=== PATIENT | female | born 1945 | race Caucasian/White ===

== ENCOUNTER 2016-10-26 08:09 | Day surgery (SDC) | payer MEDICARE, OTHER ==
[~2016-10-26] VITALS: Ht 170.2 cm; Wt 69.6 kg
[2016-10-26] VITALS (11 sets, daily range): BP systolic 110–203; BP diastolic 49–75; PULSE 61–74; RESP 12–24; O2SAT 85–100
[~2016-10-26 08:09] MED LIST: 0.9% Sodium Chloride 500 ML IV ONE; ALBU8.5H2 INHALATION; AMLO5TAB2 PO; CALC500T9 PO; CARV3.12 PO; CeFAZolin Inj 2 GM in IV Premix 1 EACH IV ONE; FOLI0.8T2 PO; GLBR5T PO; HYDR25TA4 PO; LEVO50CA2 PO; SERT100T PO
[2016-10-26] MEDS ORDERED: Propofol 10,000 mCg/mL 20 mL Inj ONE (08:10)
[2016-10-26] MEDS ORDERED: Dexamethasone 4 mg/mL Inj ONE (08:10)
[2016-10-26] MEDS ORDERED: fentaNYL-PF 50 mCg/mL 2 mL Inj ONE (08:10)
[2016-10-26] MEDS ORDERED: Rocuronium 10 mg/mL 5 mL Inj ONE (08:10)
[2016-10-26] MEDS ORDERED: Ondansetron 2 mg/mL 2 mL Inj ONE (08:10)
[2016-10-26] MEDS ORDERED: GLIP2.5T2 PO (08:32)
--- NOTE | 2016-10-26 09:18 | PCM.HPANE ---
Patient Data Date of Service: Oct 26, 2016 Surgeon Admitting Provider: Attending Provider:Desmond David MD Primary Care Physician:Biju Peter MD Other Provider: Reason for Visit End Stage Renal Failure Ht/WT & BMI Height (Feet): 5 Height (Inches): 7 Weight (Kilograms): 69.6 Body Mass Index 24.00 Allergies Coded Allergies: Sulfa (Sulfonamide Antibiotics) (Verified Allergy, Unknown, UNKNOWN, ) doxycycline (Verified Allergy, Unknown, UNKNOWN, 12/23/15) morphine (Verified Adverse Reaction, Severe, VIOLENT BEHAVIOR, 12/23/15) Uncoded Allergies: BEE STINGS (Allergy, Unknown, UNKNOWN, 12/23/15) Past Anesthesia History Anesthesia History: Denies:: Anesthesia Reactions, Fam Anesthesia Reaction, Malignant Hyperthermia Diabetes History Hx Diabetes?: Yes Type of Diabetes: Type II Glycemic Control: Oral Medication Current Bedside Blood Glucose: 145 MRSA MRSA: No Medications Hypertension Medication: Yes Home Meds Incl Beta Yossi: Yes Date Beta Yossi Taken: Oct 26, 2016 Time Beta Yossi Taken: 629 Reported Medications Glipizide ER 2.5 Mg Tab.er.242.5 Mg PO BID #180 10/26/16 Calcium Carbonate (Tums)500 Mg Tab.chew1,000 Mg PO TIDWM 30 Days 10/23/16 Folic Acid/Vitamin B Comp W-C (Nephro-Kristie Tablet)0.8 Mg Tablet0.8 Mg PO DAILY 10/23/16 Amlodipine 5 Mg Tablet5 Mg PO DAILY Ref 0 10/23/16 Carvedilol (Coreg)3.125 Mg Tablet3.125 Mg PO DAILY Ref 0 10/23/16 Sertraline HCl (Zoloft)100 Mg Wwzhdf17 Mg PO DAILY 30 Days Ref 0 10/23/16 Levothyroxine (Tirosint)50 Mcg Hmmkxuo94 Mcg PO DAILY 10/23/16 Albuterol HFA (Proair HFA)8.5 Gm Hfa.aer.ad2 Puffs INHALATION Q4H PRN For Shortness of Breath #1 INHALER 10/23/16 Hydrochlorothiazide 25 Mg Szygol44 Mg PO DAILY 30 Days Ref 0 10/23/16 Discontinued Reported Medications Glyburide 5 Mg Tab10 Mg PO QAM 30 Days Ref 0 10/23/16 Hydrochlorothiazide 25 Mg Xzkdql07 Mg PO DAILY 30 Days Ref 0 12/23/15 Carvedilol 3.125 Mg Tablet3.125 Mg PO BID Ref 0 12/23/15 Amlodipine 5 Mg Tablet5 Mg PO BID Ref 0 12/23/15 Sertraline HCl (Zoloft)50 Mg Knizid12 Mg PO DAILY Ref 0 12/23/15 Levothyroxine (Tirosint)50 Mcg Yxyozgu97 Mcg PO DAILY 12/23/15 Albuterol HFA (Proair HFA)8.5 Gm Hfa.aer.ad2 Puffs INHALATION Q4H #1 INHALER 12/23/15 Insuln Asp Prt/Insulin Aspart (NovoLOG 70/30 U100 Insulin Flexpen)100 Unit/Ml Unit10 Unit SUBQ TIDWM #1 PENINJ Ref 0 12/23/15 Glipizide 10 Mg Blsjwn50 Mg PO DAILY 30 Days 12/23/15 History History of ENT Problems?: Yes HEENT History: Positive for:: Cataracts (bilateral ) Sinus Problem (hx nasal surgery, chronic sinusitis) Denies:: Glaucoma Hearing Problem Hx of Heart Problems?: Yes Cardiovascular History: Positive for:: Hypertension Denies:: AICD Heart Murmur Irregular Heartbeat Pacemaker Peripheral Vascular Hx of Respiratory Problem?: Yes Respiratory History: Positive for:: Asthma (CTA DOS) Use of Inhalers / NEBS Denies:: COPD Dyspnea Oxygen Administration Pneumonia Tuberculosis Use of C-PAP Machine Hx Neurologic Problems?: Yes Neurological History: Denies:: Alzheimer's Disease CVA Headaches Multiple Sclerosis Parkinson's Disease Seizures Hx of GI Problems?: Yes Gastrointestinal History: Positive for:: Gall Bladder Disease (bladimir) Gastroesphageal Reflux (2 tums before every meal ) Hepatitis (HEP A & B HEP C-TREATED) Hx of Problems?: Yes Genitourinary History: Positive for:: HX of Hemodialysis (dialysis, tues, th, [facility] [place], [place]) Denies:: Kidney Stones Urinary Tract Infection Female Hx: Denies:: Currently Problems with Breasts? Skin History: Denies:: History Skin Disorders? Pressure Ulcers Hx Musculoskeletal Problems?: Yes Musculoskeletal History: Positive for:: Musculoskeletal Trauma (recent fx wrist- pins placed 07/2016) Osteoarthritis ("probably" in fingers, not officially dx) Denies:: Back Injury Joint Replacement Myasthenia Gravis Hx of Psycho/Social Problems?: No Hx Any Other Health Problems?: Yes Other History: Positive for:: Thyroid Disease Denies:: Cancer Endocrine Disease Hospitalization History Blood Transfusions: Positive for:: Accept Blood Products? Denies:: Blood Transfusions Hx Diabetes: YesBedside Blood Glucose: 145 Hx Alcohol Use: YesAlcoholic Drinks Per Day: drink dailyHx Substance Use: No Smoking Status: Former Smoker Have You Smoked inLast 12 mo: No Stop/Bang Treated for Sleep Apnea?: No Do You Have a CPAP Machine?: No S-Snoring: Do You Snore Loudly: No T-Tired: feel tired, fatigued: Yes O-Obsered: Observed not breath: No P-Blood Pressure: treated: Yes B- Body Mass Index > 35 kg/m2: No A- Age over 50: Yes N- Neck Large Circumference: No G- Gender Male: No LYNN Total Score: 3 LYNN Risk Assessment: High Risk, =/>3 Yes Risk Assessment Category Category 1A: Patient has history of documented sleep apnea, and HAS NOT received any narcotic, sedative or anesthesia administration during this stay. Category 1B: Patient has history of documented sleep apnea, and HAS received any narcotic , sedative or anesthesia administration during this stay Category 2: Patient has SUSPECTED Obstructive Sleep Apnea, and HAS received any narcotic , sedative or anesthesia administration during this stay. Category 3: Patient has SUSPECTED Obstructive Sleep Apnea and HAS NOT received narcotic, sedative or anesthesia administration during this stay. Category 4: Outpatient in Procedural Areas with known sleep apnea or who screen positive for High Risk via the STOP/BANG questionnaire. Exam Exam Vital Signs Vital Signs Date Time Temp Pulse Resp B/P Pulse Ox O2 Delivery O2 Flow Rate FiO2 10/26/16 08:33 74 14 135/59 95 Room Air General Appearance: Alert, Oriented X3, Cooperative, No Acute Distress HEENT/AIRWAY: MP 3 (retrognathic) Lungs: Clear to Auscultation, Normal Air Movement Heart: Normal S1, Normal S2, Murmur (II/ ZORAIDA from aortic post without radiation.) Meds/Labs/Diagnostics Admission Meds Current Medications Sodium Chloride (Normal Saline) 500 ml @ 10 mls/hr Q24H ONCE IV Last administered on 10/26/16t 08:29; Start 10/26/16 at 05:00; Stop 2/21/17 at 04:59 Bedside Blood Glucose: 145 Labs Test 10/26/16 09:02 Plan Impression Patient chart reviewed, patient interviewed and anesthestic plan with risks, benefits, and alternatives discussed, and informed consent obtained. NPO Status: 1830 10/25/16 ASA Physical Status: ASA3 Severe Disease Anesthetic Plan: GA Bene/Risks/Altern/Consents: Yes HP Complete Prior to Induction: Yes Avila Silver DO Oct 26, 2016 09:18
[2016-10-26] MEDS ORDERED: HepLOK Flush 100 unit/mL 5 mL Inj XX ONE (10:35)
[2016-10-26] MEDS ORDERED: Bupivacaine-MPF 0.5% 30 mL Inj INJ ONE (10:35)
[2016-10-26] MEDS ORDERED: Lactated Ringer's 500 ML IV PRN (10:42)
[2016-10-26] MEDS ORDERED: Lactated Ringer's 1,000 ML IV SCH (10:42)
[2016-10-26] MEDS ORDERED: MetoCLOpramide 5 mg/mL 2 mL Inj IVPUSH PRN (10:45)
[2016-10-26] MEDS ORDERED: EPHEDrine Sulfate 50 mg/mL Inj IVPUSH PRN (10:45)
[2016-10-26] MEDS ORDERED: Labetalol 5 mg/mL 4 mL Inj IV PRN (10:45)
[2016-10-26] MEDS ORDERED: Atropine 0.4 mg/mL Inj IVPUSH PRN (10:45)
[2016-10-26] MEDS ORDERED: Dexamethasone 4 mg/mL Inj IVPUSH PRN (10:45)
[2016-10-26] MEDS ORDERED: Phenylephrine 10,000 mCg/mL Inj IVPUSH PRN (10:45)
[2016-10-26] MEDS ORDERED: fentaNYL-PF 50 mCg/mL 2 mL Inj IVPUSH PRN (10:45)
[2016-10-26] MEDS ORDERED: Ondansetron 2 mg/mL 2 mL Inj IVPUSH PRN (10:45)
[2016-10-26] MEDS ORDERED: HYDROmorphone 1 mg/mL Inj IVPUSH PRN (10:45)
[2016-10-26] MEDS ORDERED: HYDROcodone-APAP 5-325 mg Tablet PO PRN (11:20)
--- NOTE | 2016-10-26 13:31 | PCM.ANEP1 ---
Post Anesthesia Phase 1 PACU Phase 1 Assessment Date of Service: Oct 26, 2016 Vital Signs Vital Signs Date Time Temp Pulse Resp B/P Pulse Ox O2 Delivery O2 Flow Rate FiO2 10/26/16 12:15 36 62 16 111/57 93 Room Air 10/26/16 11:59 36.4 62 14 116/53 94 Room Air 10/26/16 11:55 61 14 114/53 92 Room Air 10/26/16 11:47 61 18 110/49 93 Room Air 10/26/16 11:35 35.9 62 16 117/55 95 Room Air 10/26/16 11:30 65 18 119/57 100 Simple Mask 8 10/26/16 11:25 66 24 124/63 100 Simple Mask 8 10/26/16 11:20 64 20 175/56 92 Simple Mask 8 10/26/16 11:15 66 14 203/75 89 Simple Mask 8 10/26/16 11:12 36.0 74 12 185/75 85 Simple Mask 8 10/26/16 08:33 74 14 135/59 95 Room Air Anesthetic Administered: GA Level of Alertness: Drowsy, not talking ALCANTAR's with Equal Strength: Yes Pain: No Nausea or Vomiting: No Airway Device: Oralpharangeal Airway Oxygen Delivery: Simple Mask (6l mask) Lungs: Clear to Auscultation, Normal Air Movement (Brief period of desaturation 77% and above relieved with jaw thrust, oral airway. Spontaneous exchange relieves desaturation within 3min) Dermatome Level: Full Sensation Avila Silver DO Oct 26, 2016 13:31
--- NOTE | 2016-10-26 13:41 | PCM.ANEP2 ---
Post Anesthesia Evaluation ASA/CMS Post Anesthesia Date of Service: Oct 26, 2016 VS in Patient's Normal Range?: Yes Resp Stable; Airway Patent?: Yes CV Function & Hydration Stable: Yes Mental Status Recovered?: Yes Pain control Satisfactory?: Yes N/V Control Satisfactory?: Yes Avila Silver DO Oct 26, 2016 13:41
--- NOTE | 2016-10-27 01:05 | OP ---
[address] [address] OPERATIVE REPORT PATIENT: CAROLYN CHAN : 1945 MR#: [id number] ADMIT: 10/26/2016 JOB ID: [id number] DATE OF SURGERY: 10/26/2016 PREOPERATIVE DIAGNOSIS(ES): End-stage renal failure. POSTOPERATIVE DIAGNOSIS(ES): 1. End-stage renal failure. 2. Intra-abdominal adhesions. OPERATION: 1. Laparoscopic placement of peritoneal dialysis catheter. 2. Laparoscopic lysis of adhesions. SURGEON: Desmond David MD. SCRAP DROP OPERATOR: Marybeth Cabello PA-C. INDICATIONS: A 71-year-old female who has end-stage renal failure currently being dialyzed through a left radiocephalic fistula. She would like to do peritoneal dialysis. She has had a previous tubal ligation and laparoscopic cholecystectomy and after discussing options with the patient, it was elected to proceed with a laparoscopic placement of a peritoneal dialysis catheter. FINDINGS: She had intra-abdominal adhesions in the periumbilical region from her previous tubal ligation and cholecystectomy. After insertion of the catheter, she had no resistance to inflow and outflow. DESCRIPTION OF PROCEDURE: At the beginning and end of the operation, the SCOAP checklist was completed. A general endotracheal anesthetic was induced. A Valladares catheter was inserted and removed at the end of the operation. She received preoperative antibiotics and had on pneumatic hose. Using ChloraPrep, she was prepped and draped in usual fashion. All incisions and trocar sites were infiltrated with 0.5% bupivacaine. A left subcostal incision was made. A Veress needle was inserted. The abdomen was insufflated with CO2 and then using an optical port, a 5 mm port was placed in the same location. An additional 5 mm port was placed in the left lower quadrant under direct visualization. The adhesions, as described above, were identified and using scissors with cautery, the omentum which was adhered was mobilized off of the anterior abdominal wall. The placement locations for the internal cuff and the exit site were made after deflating the abdominal cavity. In the right upper quadrant just lateral to midline, an incision was designed and an 8 mm trocar was passed through the anterior rectus fascia and then entered the peritoneal cavity at the location of the predetermined tracey for the internal cuff. The catheter was then tunneled to its predetermined right upper quadrant exit site. The curled portion of the catheter was positioned into the pelvis and midline. Using normal saline, the catheter was tested for inflow and outflow, and there was excellent flow in both directions. The catheter was then flushed with heparinized saline and fittings attached. The abdomen was reinflated and inspected for residual fluid of which I could not identify any to aspirate. Trocars were removed after deflating the abdominal cavity. Skin incisions were closed with running subcuticular 4-0 Vicryl. Steri-Strips and sterile dressings were applied. Estimated blood loss less than 10 cc. No apparent complications. The final sponge, needle and instrument counts were announced as correct, and the patient was returned to recovery in stable condition. Critical assistance for this laparoscopic procedure was provided by Marybeth Cabello PA-C.
== END 2016-10-26 23:59 | disposition home or self-care (01) ==
LOC: SAS 08:09
PROVIDERS: ATTEND Surgery
DX: N18.6 End stage renal disease (principal); I12.0 Hypertensive chronic kidney disease with stage 5 chronic kidney disease or end stage renal disease; E78.00 Pure hypercholesterolemia, unspecified; E11.21 Type 2 diabetes mellitus with diabetic nephropathy; D64.9 Anemia, unspecified; E07.9 Disorder of thyroid, unspecified; B15.9 Hepatitis A without hepatic coma; B19.10 Unspecified viral hepatitis B without hepatic coma; B18.2 Chronic viral hepatitis C; B19.20 Unspecified viral hepatitis C without hepatic coma; F32.9 Major depressive disorder, single episode, unspecified; Z87.891 Personal history of nicotine dependence; Z79.4 Long term (current) use of insulin; Z79.84 Long term (current) use of oral hypoglycemic drugs
CPT/HCPCS: 36415; 49324; 84132; J0690; J1100; J1642; J2250; J2405; J3010; J7040